=== PATIENT | male | born 1970 | race American Indian/Alaskan Native ===

== ENCOUNTER 2017-05-02 14:12 | Emergency (ER) | payer MEDICARE ==
[2017-05-02 16:18] LABS: Basophils % (Auto) 0.5 % (0.0-1.8); Eosinophils % (Auto) 1.1 % (0.0-4.3); Hematocrit 43.4 % (35.5-45.6); Hemoglobin 14.4 gm/dl (11.8-15.2); Mean Corpuscular HGB Conc 33 % (32-34); Mean Corpuscular Hemoglobin 29 pg (28-32); Mean Corpuscular Volume 87 fl (84-94); Platelet Count 317 K/mm3 (140-440); Red Blood Count 5.02 M/mm3 (3.65-5.03); Red Cell Distribution Width 13.7 % (13.2-15.2); White Blood Count 7.4 K/mm3 (4.5-11.0)
[2017-05-02 16:44] LABS: INR 0.95 (0.87-1.13)
[2017-05-02 16:45] LABS: Partial Thromboplastin Time 28.1 Sec. (24.2-36.6)
--- NOTE | 2017-05-02 16:56 | Cat Scan Report ---
FINAL REPORT PROCEDURE: CT HEAD/BRAIN WO CON TECHNIQUE: Computerized tomography of the head was performed without contrast material. HISTORY: neuro deficits \T\lt; 6hrs or sx present upon awakening COMPARISON: No prior studies are available for comparison. FINDINGS: Mild mucosal thickening is seen in the paranasal sinuses. Mastoid air cells are clear. No calvarial fracture is seen. Cerebral ventricles are normal in size. No acute intracranial hemorrhage or mass effect is seen. No CVA is seen. IMPRESSION: No intracranial abnormality is seen.
[2017-05-02 17:06] LABS: Anion Gap 21 mmol/L; BUN/Creatinine Ratio 13.68; Blood Urea Nitrogen 26 mg/dL (9-20); Carbon Dioxide 22 mmol/L (22-30); Chloride 93.2 mmol/L (98-107); Glucose 83 mg/dL (75-100); Potassium 3.5 mmol/L (3.6-5.0); Sodium 133 mmol/L (137-145)
[2017-05-02] MEDS ORDERED: NACL 0.9% 1000 ML 1,000 ML IV ONE (17:23)
[2017-05-02] MEDS ORDERED: MORPHINE IV ONE (17:36)
[2017-05-02] MEDS ORDERED: KEPPRA 1,000 MG/NS 0.75% 100ML 1,000 MG/100 ML BAG IV ONE (17:36)
[2017-05-02] MEDS ORDERED: ZOFRAN IV ONE (17:36)
[2017-05-02] MEDS ORDERED: TORADOL IV ONE (17:43)
[2017-05-02] MEDS ORDERED: ATIVAN IV ONE (17:44)
[2017-05-02] MEDS ORDERED: K-DUR PO ONE (19:14)
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
[2017-05-02 20:06] VITALS: BP 111/71
== END 2017-05-02 20:06 | disposition home or self-care (01) ==
LOC: ED 14:12
DX: R56.9 Unspecified convulsions (principal); E87.1 Hypo-osmolality and hyponatremia; E87.6 Hypokalemia; N28.9 Disorder of kidney and ureter, unspecified; I10 Essential (primary) hypertension; Z87.891 Personal history of nicotine dependence
CPT/HCPCS: 36415; 70450; 80048; 82550; 82962; 84484; 85025; 85610; 85670; 85730; 93005; 93010; 96374; 96375; 99285; J1885; J1953; J2270; J2405; J7030

== ENCOUNTER 2017-09-26 06:34 | Emergency (ER) | payer BC ==
[2017-09-26] MEDS ORDERED: TORADOL IM ONE (09:35)
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
[2017-09-26 10:06] VITALS: BP 157/98
== END 2017-09-26 10:06 | disposition home or self-care (01) ==
LOC: ED 06:34
DX: K05.10 Chronic gingivitis, plaque induced (principal); I10 Essential (primary) hypertension; G43.909 Migraine, unspecified, not intractable, without status migrainosus
CPT/HCPCS: 96372; 99282

== ENCOUNTER 2017-10-04 16:43 | Outpatient (CLI) | payer BC | END 2017-10-04 16:44 | disposition home or self-care (01) | LOC: LAB 16:43 | PROVIDERS: ATTEND Specialist | DX: R56.9 Unspecified convulsions (principal) | CPT/HCPCS: 36415; 80156 ==

== ENCOUNTER 2018-10-13 15:00 | Inpatient (IN) | payer SELFPAY ==
[2018-10-13] MEDS ORDERED: ASPIRIN PO ONE ×2 (16:01→17:27)
[2018-10-13 16:54] LABS: Basophils % (Auto) 0.6 % (0.0-1.8); Eosinophils # (Auto) 0.2 K/mm3 (0.0-0.4); Eosinophils % (Auto) 3.7 % (0.0-4.3); Hematocrit 39.1 % (35.5-45.6); Hemoglobin 13.1 gm/dl (11.8-15.2); Lymphocytes # (Auto) 1.7 K/mm3 (1.2-5.4); Lymphocytes % (Auto) 26.6 % (13.4-35.0); Mean Corpuscular HGB Conc 33 % (32-34); Mean Corpuscular Volume 87 fl (84-94); Monocytes # (Auto) 0.5 K/mm3 (0.0-0.8); Monocytes % (Auto) 7.2 % (0.0-7.3); Platelet Count 351 K/mm3 (140-440); Red Blood Count 4.51 M/mm3 (3.65-5.03); Red Cell Distribution Width 13.4 % (13.2-15.2)
[2018-10-13 17:11] LABS: BUN/Creatinine Ratio 13; Blood Urea Nitrogen 15 mg/dL (9-20); Calcium 9.3 mg/dL (8.4-10.2); Hemolysis Index 9
[2018-10-13] MEDS ORDERED: NITRO-BID 2% TP ONE (17:27)
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
[2018-10-13] MEDS ORDERED: ASPIRIN ONE (18:03)
[2018-10-13 18:15] LABS: INR 0.91 (0.87-1.13); Partial Thromboplastin Time 30.4 Sec. (24.2-36.6)
--- NOTE | 2018-10-13 18:15 | XRay Report ---
FINAL REPORT EXAM: XR CHEST 1V AP HISTORY: hypertension TECHNIQUE: Frontal portable view of the chest Comparison: Chest x-ray dated October 06, 2018 FINDINGS: There is no evidence of infiltrate, pneumothorax or pleural fluid collection. The cardiomediastinal silhouette is normal in appearance. The bony structures are notable for retained hardware in the visualized portion of the cervical spine . IMPRESSION: 1. No evidence of an acute pulmonary process. 2. Retained hardware cervical spine.
[2018-10-13 18:23] LABS: Creatine Kinase MB 3.3 ng/mL (0.0-4.0)
[2018-10-13 18:25] LABS: Alanine Aminotransferase 16 units/L (7-56); Albumin 4.2 g/dL (3.9-5)
[2018-10-13 18:55] LABS: Bilirubin,Direct < 0.2 mg/dL (0-0.2)
[2018-10-13 19:44] LABS: Bilirubin,Urine NEG (Negative); Blood,Urine NEG (Negative); Color,Urine Yellow (Yellow); Mucus,Urine FEW /HPF; Protein,Urine <15 mg/dL mg/dL (Negative); Urobilinogen,Urine < 2.0 mg/dL (<2.0)
[2018-10-13 19:49] LABS: Amphetamine Screen,Urine PRESUMPTIVE NEGATIVE; Benzodiazepines Screen,Urine PRESUMPTIVE NEGATIVE; Cannabinoid Screen,Urine PRESUMPTIVE NEGATIVE; Cocaine Screen,Urine PRESUMPTIVE NEGATIVE; Methadone Screen,Urine PRESUMPTIVE NEGATIVE; Opiate Screen,Urine PRESUMPTIVE NEGATIVE
[2018-10-14] MEDS ORDERED: TYLENOL PO PRN (00:24)
[2018-10-14] MEDS ORDERED: DILAUDID IV PRN (00:24)
[2018-10-14] MEDS ORDERED: SODIUM CHLORIDE FLUSH SYRINGE 10 ML IV PRN (00:24)
[2018-10-14] MEDS ORDERED: ZOFRAN IV PRN (00:24)
[2018-10-14] MEDS ORDERED: NON-FORMULARY (Gabapentin [Neurontin] 600 MG) PO SCH (00:30)
[2018-10-14] MEDS: NEURONTIN PO SCH ×3 (00:33→21:08)
[2018-10-14] MEDS: NORCO 10/325 PO PRN ×2 (00:33→21:08)
[2018-10-14] MEDS: SODIUM CHLORIDE FLUSH SYRINGE 10 ML IV SCH ×3 (00:34→21:10)
[2018-10-14 03:14] LABS: Alanine Aminotransferase 18 units/L (7-56); Albumin 3.8 g/dL (3.9-5); BUN/Creatinine Ratio 12; Blood Urea Nitrogen 14 mg/dL (9-20); Calcium 8.8 mg/dL (8.4-10.2); Hemolysis Index 6
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
[2018-10-14] MEDS ORDERED: K-DUR PO ONE ×2 (06:43→22:00)
[2018-10-14] MEDS ORDERED: AMLODIPINE BESYLATE PO SCH (10:00)
[2018-10-14] MEDS ORDERED: ZESTRIL PO SCH (10:00)
[2018-10-14] MEDS ORDERED: NORVASC PO SCH (10:00)
[2018-10-14] MEDS ORDERED: COREG PO SCH (10:00)
[2018-10-14] MEDS ORDERED: BENAZEPRIL PO SCH (10:00)
[2018-10-14] MEDS ORDERED: AFLURIA QUAD 2018-2019 SYRINGE IM ONE (12:00)
[2018-10-14] MEDS ORDERED: PNEUMOVAX 23 IM ONE (12:00)
[2018-10-14] MEDS: PEPCID PO SCH ×2 (13:46→21:08)
[2018-10-14] MEDS: ZANAFLEX PO SCH (13:46)
[2018-10-14] MEDS ORDERED: APRESOLINE IV PRN (14:43)
--- NOTE | 2018-10-14 14:48 | Progress Note ---
Assessment and Plan Assessment and plan: 47-year-old man with history of hypertension. He had just been treated in the ER 7 days ago for hypertensive urgency and discharge. He has not been compliant with his blood pressure medications. He presents with retrosternal chest pain. pmh; htn, seizure disorder, non adherence to BP meds Plan -optimize bp meds, does not have insurance, so using affordable meds - Repleted K -stress test neg - counseled on improved adherence to bp meds -Patient states that he self stopped his blood pressure meds due to erectile dysfunction. He is asking that his medications be changed to medicines that are less likely to cause it. Therefore he has been put on prazosin, lisinopril and Imdur. Although imdur is not the ideal choice for essential htn, patient is refusing other meds, therefore he is put on trial of imdur Dx Cp due to htn urgency htn urgency hypokalemia non adherence to bp meds due to erectile dysfunction History Interval history: Review of systems Constitutional: No fevers, no malaise, no joint pains CVS: No chest pain, no orthopnea, no dyspnea on exertion, no pedal edema GI: No abdominal pain, no diarrhea, no vomiting, no constipation Respiratory: No shortness of breath, no wheezing, no coughing Hospitalist Physical - Physical exam Narrative exam: General.: Appears well, no distress, nontoxic HEENT: Moist mucous membranes, extraocular muscles intact, no lymphadenopathy Neck: supple Cardiac: S1-S2 heard Lungs: clear to auscultation bilaterally Abdomen: soft , nontender, nondistended, bowel sounds positive Extremities: no edema clubbing or cyanosis Skin: no rash or lesions Neurologic: no gross focal deficits Psych: calm, and cooperative - Constitutional Vitals: Temp Pulse Resp BP Pulse Ox 97.9 F 65 20 169/116 97 10/14/18 08:39 10/14/18 08:39 10/14/18 08:39 10/14/18 11:42 10/14/18 08:39 General appearance: Present: no acute distress, well-nourished Results - Labs CBC & Chem 7: 10/13/18 16:34 10/14/18 02:08 Labs: Laboratory Last Values WBC 6.4 K/mm3 (4.5-11.0) 10/13/18 16:34 RBC 4.51 M/mm3 (3.65-5.03) 10/13/18 16:34 Hgb 13.1 gm/dl (11.8-15.2) 10/13/18 16:34 Hct 39.1 % (35.5-45.6) 10/13/18 16:34 MCV 87 fl (84-94) 10/13/18 16:34 MCH 29 pg (28-32) 10/13/18 16:34 MCHC 33 % (32-34) 10/13/18 16:34 RDW 13.4 % (13.2-15.2) 10/13/18 16:34 Plt Count 351 K/mm3 (140-440) 10/13/18 16:34 Lymph % (Auto) 26.6 % (13.4-35.0) 10/13/18 16:34 [place] % (Auto) 7.2 % (0.0-7.3) 10/13/18 16:34 Eos % (Auto) 3.7 % (0.0-4.3) 10/13/18 16:34 Baso % (Auto) 0.6 % (0.0-1.8) 10/13/18 16:34 Lymph # 1.7 K/mm3 (1.2-5.4) 10/13/18 16:34 [place] # 0.5 K/mm3 (0.0-0.8) 10/13/18 16:34 Eos # 0.2 K/mm3 (0.0-0.4) 10/13/18 16:34 Baso # 0.0 K/mm3 (0.0-0.1) 10/13/18 16:34 Seg Neutrophils % 61.9 % (40.0-70.0) 10/13/18 16:34 Seg Neutrophils # 3.9 K/mm3 (1.8-7.7) 10/13/18 16:34 PT 12.7 Sec. (12.2-14.9) 10/13/18 17:38 INR 0.91 (0.87-1.13) 10/13/18 17:38 APTT 30.4 Sec. (24.2-36.6) 10/13/18 17:38 D-Dimer 149.2 ng/mlDDU (0-234) 10/13/18 17:38 Sodium 142 mmol/L (137-145) 10/14/18 02:08 Potassium 3.5 mmol/L (3.6-5.0) L 10/14/18 02:08 Chloride 103.7 mmol/L (98-107) 10/14/18 02:08 Carbon Dioxide 28 mmol/L (22-30) 10/14/18 02:08 Anion Gap 14 mmol/L 10/14/18 02:08 BUN 14 mg/dL (9-20) 10/14/18 02:08 Creatinine 1.2 mg/dL (0.8-1.5) 10/14/18 02:08 Estimated GFR > 60 ml/min 10/14/18 02:08 BUN/Creatinine Ratio 12 % 10/14/18 02:08 Glucose 89 mg/dL (75-100) 10/14/18 02:08 Calcium 8.8 mg/dL (8.4-10.2) 10/14/18 02:08 Magnesium 2.10 mg/dL (1.7-2.3) 10/13/18 17:38 Total Bilirubin 0.30 mg/dL (0.1-1.2) 10/14/18 02:08 Direct Bilirubin < 0.2 mg/dL (0-0.2) 10/13/18 17:38 Indirect Bilirubin 0.1 mg/dL 10/13/18 17:38 AST 19 units/L (5-40) 10/14/18 02:08 ALT 18 units/L (7-56) 10/14/18 02:08 Alkaline Phosphatase 73 units/L (35-129) 10/14/18 02:08 Total Creatine Kinase 290 units/L (55-170) H 10/13/18 17:38 CK-MB (CK-2) 3.3 ng/mL (0.0-4.0) 10/13/18 17:38 CK-MB (CK-2) Rel Index 1.1 (0-4) 10/13/18 17:38 Troponin T < 0.010 ng/mL (0.00-0.029) 10/13/18 21:53 NT-Pro-B Natriuret Pep 43.14 pg/mL (0-450) 10/13/18 17:38 Total Protein 7.0 g/dL (6.3-8.2) 10/14/18 02:08 Albumin 3.8 g/dL (3.9-5) L 10/14/18 02:08 Albumin/Globulin Ratio 1.2 % 10/14/18 02:08 Urine Color Yellow (Yellow) 10/13/18 18:55 Urine Turbidity Clear (Clear) 10/13/18 18:55 Urine pH 5.0 (5.0-7.0) 10/13/18 18:55 Ur Specific [place] 1.024 (1.003-1.030) 10/13/18 18:55 Urine Protein <15 mg/dl mg/dL (Negative) 10/13/18 18:55 Urine Glucose (UA) Neg mg/dL (Negative) 10/13/18 18:55 Urine Ketones Neg mg/dL (Negative) 10/13/18 18:55 Urine Blood Neg (Negative) 10/13/18 18:55 Urine Nitrite Neg (Negative) 10/13/18 18:55 Urine Bilirubin Neg (Negative) 10/13/18 18:55 Urine Urobilinogen < 2.0 mg/dL (<2.0) 10/13/18 18:55 Ur Leukocyte Esterase Neg (Negative) 10/13/18 18:55 Urine WBC (Auto) 1.0 /HPF (0.0-6.0) 10/13/18 18:55 Urine RBC (Auto) 1.0 /HPF (0.0-6.0) 10/13/18 18:55 Urine Mucus Few /HPF 10/13/18 18:55 Urine Opiates Screen Presumptive negative 10/13/18 18:55 Urine Methadone Screen Presumptive negative 10/13/18 18:55 Ur Barbiturates Screen Presumptive negative 10/13/18 18:55 Carbamazepine 2.0 ug/mL (4-12) L 10/14/18 06:48 Ur Phencyclidine Scrn Presumptive negative 10/13/18 18:55 Ur Amphetamines Screen Presumptive negative 10/13/18 18:55 U Benzodiazepines Scrn Presumptive negative 10/13/18 18:55 Urine Cocaine Screen Presumptive negative 10/13/18 18:55 U Marijuana (THC) Screen Presumptive negative 10/13/18 18:55 Drugs of Abuse Note Disclamer 10/13/18 18:55
[2018-10-14] MEDS ORDERED: ZESTRIL PO ONE (15:38)
[2018-10-14] MEDS ORDERED: HCTZ PO SCH (16:00)
[2018-10-14] MEDS: IMDUR PO SCH (18:53)
[2018-10-14] MEDS: MINIPRESS PO SCH (21:10)
--- NOTE | 2018-10-14 21:19 | Treadmill Report ---
INDICATION FOR THIS TESTING: Chest pain. FINDINGS: There is no scintigraphic evidence of myocardial ischemia. The left ventricle is normal in size. The left ventricular ejection fraction is measured at 56%. There is normal wall motion and wall thickening on gated imaging. CONCLUSION: This is a normal myocardial perfusion scan associated with low cardiovascular event rate. JOB# [id number] ANAYA/REMIGIO
[2018-10-14] MEDS ORDERED: PROCARDIA XL PO SCH (22:00)
[2018-10-15] MEDS ORDERED: ZESTRIL PO SCH (10:00)
--- NOTE | 2018-10-15 10:32 | Discharge Summary ---
Providers - Providers Date of Admission: 10/13/18 18:40 Attending physician: CAROLINA ARELLANO MD Primary care physician: MAGALY SOLIS Hospitalization Condition: Stable Hospital course: 47-year-old male with history of hypertension. His blood pressure medications. He stated that he thought they were causing erectile dysfunction. He was offered multiple blood pressure medications which he refused, he presented to the hospital with hypertensive urgency and chest pain. He went on to have a stress test that was negative. His blood pressure medications optimized. He refused JARRED inhibitor is causing channel blockers and diuretics. Therefore he was put on processes seen and the nitrates. Even though these are not the first line medications for essential hypertension is with the only medications the patient will agree to take. He was counseled about medication adherence prior to discharge. Diagnoses Hypertension with hypertensive urgency Chest pain due to hypertensive urgency History of seizure disorder History of DINH Disposition: TO HOME OR SELFCARE Time spent for discharge: 33 mins Core Measure Documentation - Palliative Care Palliative Care/ Comfort Measures: Not Applicable - Core Measures Any of the following diagnoses?: none Exam - Constitutional Vitals: Temp Pulse Resp BP Pulse Ox 97.5 F L 68 14 113/78 97 10/15/18 07:52 10/15/18 07:52 10/15/18 07:52 10/15/18 07:52 10/15/18 07:52 General appearance: Present: no acute distress, well-nourished - EENT Eyes: Present: PERRL ENT: hearing intact, clear oral mucosa - Neck Neck: Present: supple, normal ROM - Respiratory Respiratory effort: normal Respiratory: bilateral: CTA - Cardiovascular Heart Sounds: Present: S1 & S2. Absent: rub, click - Extremities Extremities: pulses symmetrical, No edema Peripheral Pulses: within normal limits - Abdominal General gastrointestinal: Present: soft, non-tender, non-distended, normal bowel sounds Male genitourinary: Present: normal - Integumentary Integumentary: Present: clear, warm, dry - Musculoskeletal Musculoskeletal: gait normal, strength equal bilaterally - Psychiatric Psychiatric: appropriate mood/affect, intact judgment & insight - Neurologic Neurologic: CNII-XII intact, moves all extremities Plan Follow up with: MAGALY SOLIS MD [Primary Care Provider] - 3-5 Days Prescriptions: RX: carBAMazepine [TEGretol] 400 mg PO BID 30 Days tablet RX: Gabapentin [Neurontin] 600 mg PO BID #60 tablet RX: ISOSORBIDE MONOnitrate [Imdur ER] 30 mg PO QDAY #30 tablet RX: Prazosin [Minipress] 1 mg PO Q12HR #60 capsule
[2018-10-15] MEDS: PEPCID PO SCH (10:33)
[2018-10-15] MEDS: IMDUR PO SCH (10:33)
[2018-10-15] MEDS: MINIPRESS PO SCH (10:33)
[2018-10-15] MEDS: ZANAFLEX PO SCH (10:33)
[2018-10-15] MEDS: SODIUM CHLORIDE FLUSH SYRINGE 10 ML IV SCH (10:34)
[2018-10-15] MEDS: NEURONTIN PO SCH (10:34)
[2018-10-16 11:28] VITALS: BP 113/78
== END 2018-10-15 12:53 | disposition home or self-care (01) | DRG 305 ==
LOC: ED 15:00 → 4A 18:40
PROVIDERS: ADMIT Internal Medicine; ATTEND Internal Medicine
PROC: 5A09357 Assistance with Respiratory Ventilation, Less than 24 Consecutive Hours, Continuous Positive Airway Pressure (ICD-10-PCS; principal; 2018-10-14)
DX: I16.0 Hypertensive urgency (principal); I10 Essential (primary) hypertension; I25.10 Atherosclerotic heart disease of native coronary artery without angina pectoris; G40.909 Epilepsy, unspecified, not intractable, without status epilepticus; G43.909 Migraine, unspecified, not intractable, without status migrainosus; E87.6 Hypokalemia; N52.9 Male erectile dysfunction, unspecified; Z90.49 Acquired absence of other specified parts of digestive tract; G47.33 Obstructive sleep apnea (adult) (pediatric)
CPT/HCPCS: 36415; 71045; 78452; 80048; 80053; 80076; 80156; 80307; 81001; 82550; 82553; 83735; 83880; 84132; 84484; 85025; 85379; 85610; 85730; 90686; 90732; 93005; 93010; 93017; 94660; G0378; A9502

== ENCOUNTER 2019-02-23 07:33 | Emergency (ER) | payer SELFPAY ==
[2019-02-23] MEDS ORDERED: NORVASC PO ONE ×3 (08:26→13:32)
[2019-02-23] MEDS ORDERED: NORCO 5/325 PO ONE (08:27)
[2019-02-23 09:17] LABS: BUN/Creatinine Ratio 13; Blood Urea Nitrogen 15 mg/dL (9-20); Calcium 8.8 mg/dL (8.4-10.2); Hemolysis Index 21
[2019-02-23 09:28] LABS: Basophils # (Auto) 0.1 K/mm3 (0.0-0.1); Basophils % (Auto) 1.1 % (0.0-1.8); Eosinophils # (Auto) 0.3 K/mm3 (0.0-0.4); Eosinophils % (Auto) 3.9 % (0.0-4.3); Hematocrit 38.6 % (35.5-45.6); Hemoglobin 13.3 gm/dl (11.8-15.2); Lymphocytes # (Auto) 2.3 K/mm3 (1.2-5.4); Lymphocytes % (Auto) 35.2 % (13.4-35.0); Mean Corpuscular HGB Conc 34 % (32-34); Mean Corpuscular Volume 86 fl (84-94); Monocytes # (Auto) 0.6 K/mm3 (0.0-0.8); Monocytes % (Auto) 9.2 % (0.0-7.3); Platelet Count 348 K/mm3 (140-440)
--- NOTE | 2019-02-23 11:24 | Cat Scan Report ---
PROCEDURE: CT HEAD/BRAIN WO CON TECHNIQUE: Computerized tomography of the head was performed without contrast material. CT DOSE LENGTH PRODUCT: 920.5 mGycm HISTORY: headache COMPARISONS: 05/02/2017 . FINDINGS: Slight scattered mucosal thickening in the ethmoid and sphenoid sinuses. Clear mastoid air cells and middle ear cavities. No acute air-fluid level visualized in the included air-filled sinuses. Bone windows demonstrate no acute fracture. The brain is without mass, mass effect, hemorrhage, or acute infarct. There is no extra-axial intracranial bleed, brain bleed, or midline shift. The ventricles and sulci are age-appropriate. IMPRESSION: No acute CVA, intracranial bleed, or brain mass Slight paranasal sinus disease without visualized acute fluid level This document is electronically signed by Juanito Wiley MD., February 23 2019 11:22:15 AM ET
[2019-02-23] MEDS ORDERED: K-DUR PO ONE (12:41)
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
[2019-02-23] MEDS ORDERED: NORVASC ONE (13:04)
[2019-02-23 13:36] VITALS: BP 160/112
== END 2019-02-23 13:37 | disposition home or self-care (01) ==
LOC: ED 07:33
DX: I10 Essential (primary) hypertension (principal); E87.6 Hypokalemia; G43.909 Migraine, unspecified, not intractable, without status migrainosus; F12.10 Cannabis abuse, uncomplicated
CPT/HCPCS: 36415; 70450; 80048; 85025

== ENCOUNTER 2020-03-20 18:05 | Emergency (ER) | payer SELFPAY ==
--- NOTE | 2020-03-20 19:11 | Event Note ---
ED Screening Note Date of service: 03/20/20 Time: 19:10 ED Screening Note: 49-year-old male presents with chest pain, cough and diarrhea x2 to 3 days This initial assessment/diagnostic orders/clinical plan/treatment(s) is/are subject to change based on patients health status, clinical progression and re- assessment by fellow clinical providers in the ED. Further treatment and workup at subsequent clinical providers discretion. Patient/guardian urged not to elope from the ED as their condition may be serious if not clinically assessed and managed. Initial orders include: Chest x-ray, labs
[2020-03-20 19:52] LABS: Eosinophils % (Auto) 0.7 % (0.0-4.3); Hematocrit 40.7 % (35.5-45.6); Hemoglobin 13.4 gm/dl (11.8-15.2); Lymphocytes # (Auto) 1.4 K/mm3 (1.2-5.4); Lymphocytes % (Auto) 30.7 % (13.4-35.0); Mean Corpuscular HGB Conc 33 % (32-34); Mean Corpuscular Volume 88 fl (84-94); Monocytes # (Auto) 0.4 K/mm3 (0.0-0.8); Monocytes % (Auto) 8.6 % (0.0-7.3); Platelet Count 305 K/mm3 (140-440); Red Blood Count 4.65 M/mm3 (3.65-5.03); Red Cell Distribution Width 13.7 % (13.2-15.2)
[2020-03-20 20:17] LABS: Albumin 4.4 g/dL (3.9-5)
--- NOTE | 2020-03-20 20:25 | XRay Report ---
CHEST PA AND LATERAL VIEWS INDICATION: Chest pain. COMPARISON: 10/13/2018 FINDINGS: Support devices: None. Heart: Within normal limits. Lungs/Pleura: No acute pulmonary or pleural findings. IMPRESSION: 1. No acute findings. Signer Name: Alex Gilliam MD Signed: 03/20/2020 8:21 PM Workstation Name: [id number]
[2020-03-21 01:25] VITALS: BP 150/70
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
== END 2020-03-21 02:10 | disposition home or self-care (01) ==
LOC: ED 18:05
DX: N39.0 Urinary tract infection, site not specified (principal); I10 Essential (primary) hypertension; G43.909 Migraine, unspecified, not intractable, without status migrainosus
CPT/HCPCS: 36415; 71046; 80053; 85025; 93005; 99283

== ENCOUNTER 2021-09-02 09:34 | Emergency (ER) | payer OTHER ==
[2021-09-02] MEDS ORDERED: LISINOPRIL 20 MG TAB PO ONE (10:48)
[2021-09-02] MEDS ORDERED: amLODIPine 5 MG TAB PO ONE (10:48)
--- NOTE | 2021-09-02 11:19 | XRay Report ---
CHEST PA AND LATERAL VIEWS INDICATION: CP. COMPARISON: 10/13/2018 FINDINGS: Support devices: None. Heart: Within normal limits. Lungs/Pleura: No acute pulmonary or pleural findings. IMPRESSION: 1. No acute findings. Signer Name: Alex Gilliam MD Signed: 09/02/2021 11:14 AM Workstation Name: [id number]
[2021-09-02 11:47] LABS: Basophils # (Auto) 0.1 K/mm3 (0.0-0.1); Eosinophils # (Auto) 0.2 K/mm3 (0.0-0.4); Lymphocytes # (Auto) 2.4 K/mm3 (1.2-5.4); Lymphocytes % (Auto) 39.6 % (13.4-35.0); Mean Corpuscular HGB Conc 32 % (32-34); Mean Corpuscular Volume 86 fl (84-94); Monocytes # (Auto) 0.5 K/mm3 (0.0-0.8); Monocytes % (Auto) 7.5 % (0.0-7.3); Platelet Count 410 K/mm3 (140-440); Red Blood Count 4.99 M/mm3 (3.65-5.03); Red Cell Distribution Width 14.1 % (13.2-15.2)
[2021-09-02 11:51] LABS: Alanine Aminotransferase 27 units/L (7-56); Albumin 4.5 g/dL (3.9-5); BUN/Creatinine Ratio 17; Blood Urea Nitrogen 20 mg/dL (9-20); Calcium 9.3 mg/dL (8.4-10.2); Hemolysis Index 12
[2021-09-02 12:01] VITALS: BP 176/112
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
--- NOTE | 2021-09-02 17:52 | Electrocardiograph Report ---
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
== END 2021-09-02 12:10 | disposition home or self-care (01) ==
LOC: ED 09:34
DX: I10 Essential (primary) hypertension (principal); Z91.14 Patient's other noncompliance with medication regimen; G43.909 Migraine, unspecified, not intractable, without status migrainosus; G47.30 Sleep apnea, unspecified; Z98.890 Other specified postprocedural states
CPT/HCPCS: 36415; 71046; 80053; 84484; 85025; 93005; 99284

== ENCOUNTER 2021-10-03 07:18 | Day surgery (SDC) | payer OTHER ==
[2021-10-03] MEDS ORDERED: ASPIRIN EC 325 MG TAB PO NR (07:45)
[2021-10-03] MEDS ORDERED: SODIUM CHLORIDE 0.9% 500 ML 500 ML IV SCH (08:00)
[2021-10-03 08:15] LABS: Basophils % (Auto) 0.7 % (0.0-1.8); Eosinophils # (Auto) 0.2 K/mm3 (0.0-0.4); Eosinophils % (Auto) 3.6 % (0.0-4.3); Lymphocytes # (Auto) 2.3 K/mm3 (1.2-5.4); Mean Corpuscular HGB Conc 30 % (32-34); Mean Corpuscular Volume 85 fl (84-94); Monocytes # (Auto) 0.5 K/mm3 (0.0-0.8); Monocytes % (Auto) 8.1 % (0.0-7.3); Platelet Count 395 K/mm3 (140-440); Red Blood Count 5.02 M/mm3 (3.65-5.03); Red Cell Distribution Width 13.8 % (13.2-15.2)
[2021-10-03 08:17] LABS: Hematocrit 42.7 % (35.5-45.6)
[2021-10-03 08:25] LABS: INR 0.87 (0.87-1.13)
[2021-10-03 08:26] LABS: Partial Thromboplastin Time 29.6 Sec. (24.2-36.6)
[2021-10-03 08:27] LABS: BUN/Creatinine Ratio 16; Blood Urea Nitrogen 16 mg/dL (9-20); Calcium 9.1 mg/dL (8.4-10.2); Hemolysis Index 8
[2021-10-03] MEDS ORDERED: HEPARIN/NS 5000 UNIT/500ML 1,000 ML IR ONE (08:33)
[2021-10-03] MEDS ORDERED: HEPARIN 10,000 UNITS/10 ML VIAL ONE (08:33)
[2021-10-03] MEDS ORDERED: fentaNYL 100 MCG/2 ML INJ ONE (08:34)
[2021-10-03] MEDS ORDERED: LIDOCAINE (2%) 20 MG/1 ML VIAL 20 ML MDV INFILTRATI ONE (08:34)
[2021-10-03] MEDS ORDERED: MIDAZOLAM 2 MG/2 ML INJ ONE (08:34)
[2021-10-03] MEDS ORDERED: VERAPAMIL 5 MG/2 ML INJ ONE (08:34)
[2021-10-03] MEDS ORDERED: NITROGLYCERIN DRIP 50 MG/250 ML BOTTLE ONE (08:40)
--- NOTE | 2021-10-03 10:02 | Cardiac Catherization Report ---
DATE OF PROCEDURE: 10/03/2021 HEART CATHETERIZATION REFERRING PHYSICIAN: Travon Em MD INDICATIONS FOR PROCEDURE: The patient is a pleasant 50-year-old gentleman with a history of hypertension, hypertensive heart disease, obstructive sleep apnea, obesity, who has been having chest pain, abnormal treadmill stress test, referred for left heart catheterization. Risks, benefits, potential alternatives explained at length prior to obtaining informed consent. PROCEDURE IN DETAIL: The patient was brought to labor gang supervisor in a postabsorptive state, prepped and draped in sterile fashion. Mir's test in right hand is normal. 2 mL of 2% lidocaine used to anesthetize the right wrist. A standard 6-English hydrophilic sheath used to cannulate the right radial artery via modified Seldinger technique. All exchanges performed to exchange a J-tip guidewire. JL3.5 catheter was used to engage the left main. No dampening or ventricularization. Cineangiography performed in multiple projections. JR4 catheter was used to cross the aortic valve under fluoroscopic guidance. Left ventriculography performed in 30-degree PEREZ and 30-degree KOREAN projections via hand injections and catheter flushed. Manual pullback performed with continuous pressure monitoring. Catheter was used to engage the right coronary. No dampening or ventricularization. Cineangiography performed in multiple projections. Next, catheter removed from the body over wire, sheath removed. Manual pressure used to achieve hemostasis. I directly supervised the administration of moderate sedation from 9:00 a.m. to 9:28 a.m. with fentanyl and Versed. There were no immediate complications. DATA: The patient remained in normal sinus rhythm throughout the procedure. Aortic pressure was 140/90. LV pressure was 140. LVEDP of 18 mmHg. Left ventriculography reveals normal systolic performance, estimated ejection fraction of 55-60%. No evidence of aortic stenosis. CORONARY ANATOMY: This is a right dominant system. Right coronary is a large vessel, courses AV groove, distally bifurcates in the posterior descending and posterolateral branches. No discrete stenoses noted. Left main is short, no significant disease, bifurcates into left anterior descending and left circumflex. Left circumflex is a moderate sized vessel, courses AV groove, gives off a large OM trunk. No significant disease. LAD is a large vessel, courses anterior interventricular groove. There is an intramyocardial segment in the mid LAD. No evidence of diastolic collapse. FABIOLA 3 flow. No disease in LAD or diagonal system. CONCLUSIONS: 1. No angiographic evidence of significant epicardial coronary artery disease in this right dominant system. It should be noted that there is an intramyocardial bridge in the mid LAD without evidence of diastolic collapse. 2. Normal left ventricular systolic performance, estimated ejection fraction of 55-60%. 3. No evidence of aortic stenosis. 4. Normal LVEDP. The patient is clinically stable, chest pain free. Standard radial care. I called his via telephone and discussed the results with her. Aggressive primary and secondary prevention measures. Follow up with Dr. Em in the office. TID: [id number] RECEIPT: [id number] ANA LAURA/CONRAD
--- NOTE | 2021-10-03 12:30 | Short Stay Summary ---
Short Stay Documentation Date of service: 10/03/21 - History H&P: obtained from office - Allergies and Medications Current Medications: Allergies No Known Allergies Allergy (Verified 03/20/20 18:32) Home Medications Medication Instructions Recorded Confirmed Last Taken Type Gabapentin [Neurontin] 600 mg PO BID #60 tablet 10/15/18 10/03/21 10/03/21 06:00 Rx 600 mg NIFEdipine [Adalat cc] 90 mg PO DAILY 10/03/21 10/03/21 10/03/21 06:00 History Oxycodone HCl/Acetaminophen 1 tab PO Q6H PRN 10/03/21 10/03/21 10/03/21 06:00 History [Percocet 10/325 mg] Sildenafil [Revatio] 20 mg PO PRN PRN 10/03/21 10/03/21 09/19/21 History 20 mg carvediloL [Coreg] 3.125 mg PO BID 10/03/21 10/03/21 10/03/21 06:00 History 3.125mg tiZANidine [Zanaflex 4mg TAB] 4 mg PO BID 10/03/21 10/03/21 10/03/21 06:00 Hi story 4 mg Active Medications Sodium Chloride (Nacl 0.9% 500 Ml) 500 mls @ 50 mls/hr IV DIRECT DIEGO Stop: 10/03/21 17:59 Last Admin: 10/03/21 09:38 Dose: 50 mls/hr - Physical exam Integumentary: other (Dressing clean dry intact. No signs of bleeding or hematoma) - Brief post op/procedure progress note Date of procedure: 10/03/21 Pre-op diagnosis: Abnormal stress test Post-op diagnosis: other (Normal coronary arteries) Anesthesia: local Estimated blood loss: minimal - Hospital course Hospital course: Patient underwent cardiac cath. Patient is found to have normal coronary arteries. Patient tolerated procedure well with no complications. - Disposition Condition at discharge: Good Disposition: 01 HOME / SELF CARE / HOMELESS Short Stay Discharge Plan Activity: advance as tolerated Diet: low fat, low cholesterol, low salt Wound: keep clean and dry, per your surgeon's advice Follow up with: [facility] [place] [Other] - 7 Days PRECIOUS EM MD [Staff Physician] - 7 Days (Patient should follow-up with Dr. Em in 1 to 2 weeks after discharge. Phone #[phone]) [facility]: [facility] Inst[facility]
[2021-10-03 13:54] VITALS: BP 136/75
== END 2021-10-03 14:40 | disposition home or self-care (01) ==
LOC: CATHLABREC 07:18
PROVIDERS: ATTEND Internal Medicine
DX: R07.89 Other chest pain (principal); R94.30 Abnormal result of cardiovascular function study, unspecified; I25.10 Atherosclerotic heart disease of native coronary artery without angina pectoris; R94.31 Abnormal electrocardiogram [ECG] [EKG]; I11.9 Hypertensive heart disease without heart failure; G47.33 Obstructive sleep apnea (adult) (pediatric); E66.01 Morbid (severe) obesity due to excess calories; F52.21 Male erectile disorder; E87.6 Hypokalemia; Z79.899 Other long term (current) drug therapy; Z98.890 Other specified postprocedural states; Z68.31 Body mass index [BMI] 31.0-31.9, adult
CPT/HCPCS: 36415; 80048; 85025; 85610; 85730; 93005; 93010; 93458; 99156; 99157; C1894; J1644; J2250; J3010; J3490; J7040; Q9967